=== PATIENT | female | born 1990 | race Two or more races ===

== ENCOUNTER 2017-04-10 17:47 | Emergency (ER) | payer MEDICAID, OTHER ==
[~2017-04-10] VITALS: Ht 154.9 cm; Wt 94.1 kg
[2017-04-10 17:49] VITALS: BP 146/87
[2017-04-10] MEDS ORDERED: DIAZEPAM 5 MG TABLET ONE (18:49)
[2017-04-10] MEDS ORDERED: KETOROLAC 30 MG/1 ML ONE (18:49)
[2017-04-10] MEDS ORDERED: KETOROLAC 30 MG/1 ML IM ONE (19:00)
[2017-04-10] MEDS ORDERED: DIAZEPAM 5 MG TABLET PO ONE (19:00)
== END 2017-04-10 19:16 | disposition home or self-care (01) ==
LOC: ED 19:05
DX: S86.112A Strain of other muscle(s) and tendon(s) of posterior muscle group at lower leg level, left leg, initial encounter (principal); W19.XXXA Unspecified fall, initial encounter; Y93.01 Activity, walking, marching and hiking; Y92.89 Other specified places as the place of occurrence of the external cause; Y99.8 Other external cause status
CPT/HCPCS: 93971; 96372; 99284; J1885